=== PATIENT | female | born 1950 | race American Indian/Alaskan Native ===

== ENCOUNTER 2018-02-12 16:57 | Observation (INO) | payer BC, OTHER ==
[2018-02-12] MEDS ORDERED: Sodium Chloride 0.9% 2.5 ML Syringe FLUSH PRN (18:04)
[2018-02-12] MEDS ORDERED: Sodium Chloride 0.9% 10 ML Syringe FLUSH PRN (18:04)
--- NOTE | 2018-02-12 18:04 | EDM.PDOC ---
<VogtTalia - Last Filed: 02/12/18 19:52> ED HPI GENERAL MEDICAL PROBLEM - General Chief Complaint: General Stated Complaint: THYROID Time Seen by Provider: 02/12/18 17:57 - History of Present Illness INITIAL COMMENTS - FREE TEXT/NARRATIVE: This is Dr. Vogt dictating an addendum note as I assumed care of this case at 7 PM. I've reviewed the history and physical as above and M in agreement. The patient does state to nursing that she has had a weight loss over these last 6-7 days. Patient did have an ultrasound done of her soft tissue neck on January 23 which was read as a heterogeneous thyroid gland with goiter and no suspicious nodule or lymphadenopathy identified. A chest x-ray was performed on February 07 was restrained read as negative and the patient also had an MRI of the soft tissue neck with and without contrast performed on February 07 which revealed a small benign-appearing lymph node in the left lower neck within the area of concern but no other suspicious findings. Patient had mentioned these tests to the earlier provider and I shared the benign results with the patient. All the labs that were ordered prior to my arrival have been reviewed by me and the significant findings included TSH which is low at 0.22 and a BUN of 40 with a creatinine of 2.3. These lead to be consistent with the patient's dehydration but I have no comparison of labs to identify if the patient has a history of renal insufficiency. Potassium magnesium and phosphorus are all within normal limits. The patient currently in the ED says that she feels improved and does not have nausea and despite all of this has been able to tolerate fluids. I will give another liter of IV fluids. This case was discussed with the hospitalist Dr. Deshpande at 1950 p.m. and he agrees with observation admission for further hydration and medication management. He does not want any additional thyroid tests to be ordered from the ED and he will address that on the floor. The patient is agreeable with admission. Impression: Dehydration, profound diarrhea, excessive external thyroid medication use - Related Data Allergies Allergy/AdvReac Type Severity Reaction Status Date / Time brompheniramine Allergy Rash Verified 02/12/18 17:20 [From Dimetapp (brompheniramine-PPA)] meperidine [From Demerol] Allergy Hives Verified 02/12/18 17:20 Penicillins Allergy Cannot Verified 02/12/18 17:20 Remember phenylpropanolamine Allergy Rash Verified 02/12/18 17:20 [From Dimetapp (brompheniramine-PPA)] Sulfa (Sulfonamide Allergy Hives Verified 02/12/18 17:20 Antibiotics) Home Meds: Home Meds Hydrochlorothiazide 25 mg PO DAILY 02/12/18 [History] Levothyroxine 0.075 mg PO DAILY 02/12/18 [History] Levothyroxine Sodium [Levo-T] 0.05 mg PO DAILY 02/12/18 [History] Magnesium Oxide [Magnesium] 400 mg PO DAILY 02/12/18 [History] Nitroglycerin [Nitrostat] 0.4 mg SL ASDIRECTED PRN 02/12/18 [History] Ondansetron [Zofran ODT] 4 mg PO Q6H PRN 02/12/18 [History] Pantoprazole Sodium [Protonix] 40 mg PO DAILY 02/12/18 [History] Ramipril [Altace] 10 mg PO BID 02/12/18 [History] amLODIPine Besylate [Amlodipine Besylate] 5 mg PO BID 02/12/18 [History] atorvaSTATin [Lipitor] 40 mg PO DAILY 02/12/18 [History] metFORMIN [Glucophage XR] 1,000 mg PO BID 02/12/18 [History] ED ROS GENERAL - Review of Systems Review Of Systems: ROS reveals no pertinent complaints other than HPI. ED EXAM, GENERAL - Physical Exam Exam: See Below (see Dictation) Course - Vital Signs Last Recorded V/S: Last Vital Signs Temp 98 F 02/13/18 04:00 Pulse 65 02/13/18 04:00 Resp 16 02/13/18 04:00 BP 113/46 L 02/13/18 04:00 Pulse Ox 95 02/13/18 04:00 - Orders/Labs/Meds Orders: Active Orders 24 hr Category Date Time Status Sodium Chloride 0.9% [Saline Flush] Med 02/12/18 18:04 Active 10 ml FLUSH ASDIRECTED PRN Sodium Chloride 0.9% [Saline Flush] Med 02/12/18 18:04 Active 2.5 ml FLUSH ASDIRECTED PRN Saline Lock Insert [OM.PC] Stat Oth 02/12/18 18:04 Ordered Medication Orders Sodium Chloride (Normal Saline) 1,000 mls @ 150 mls/hr IV ASDIRECTED CHARLIE Last Admin: 02/13/18 05:04 Dose: 150 mls/hr Infusion: 02/13/18 05:02 Dose: 150 mls/hr Admin: 02/12/18 22:21 Dose: 150 mls/hr Insulin Aspart (Novolog) 0 unit SUBCUT TIDAC [facility]; Protocol Last Admin: 02/13/18 06:30 Dose: Not Given Ondansetron HCl (Zofran) 4 mg IVPUSH Q4H PRN PRN Reason: Nausea Promethazine HCl (Phenergan) 25 mg IM Q6H PRN PRN Reason: Nausea Sodium Chloride (Saline Flush) 10 ml FLUSH ASDIRECTED PRN PRN Reason: Keep Vein Open Last Admin: 02/12/18 20:35 Dose: 10 ml Sodium Chloride (Saline Flush) 2.5 ml FLUSH ASDIRECTED PRN PRN Reason: Keep Vein Open Last Admin: 02/12/18 20:35 Dose: 2.5 ml Labs: Laboratory Tests 02/12/18 02/12/18 Range/Units 18:14 18:14 WBC 8.22 (4.0-11.0) K/uL RBC 4.69 (4.30-5.90) M/uL Hgb 13.4 (12.0-16.0) g/dL Hct 40.4 (36.0-46.0) % MCV 86.1 (80.0-98.0) fL MCH 28.6 (27.0-32.0) pg MCHC 33.2 (31.0-37.0) g/dL RDW Std Deviation 42.7 (28.0-62.0) fl RDW Coeff of Mable 14 (11.0-15.0) % Plt Count 349 (150-400) K/uL MPV 10.30 (7.40-12.00) fL Neut % (Auto) 56.9 (48.0-80.0) % Lymph % (Auto) 31.9 (16.0-40.0) % [place] % (Auto) 9.7 (0.0-15.0) % Eos % (Auto) 1.3 (0.0-7.0) % Baso % (Auto) 0.2 (0.0-1.5) % Neut # (Auto) 4.7 (1.4-5.7) K/uL Lymph # (Auto) 2.6 H (0.6-2.4) K/uL [place] # (Auto) 0.8 (0.0-0.8) K/uL Eos # (Auto) 0.1 (0.0-0.7) K/uL Baso # (Auto) 0.0 (0.0-0.1) K/uL Nucleated RBC % 0.0 /100WBC Nucleated RBCs # 0 K/uL Sodium 136 (136-145) mmol/L Potassium 4.5 (3.5-5.1) mmol/L Chloride 102 (98-107) mmol/L Carbon Dioxide 20.7 L (21.0-32.0) mmol/L BUN 40 H (7.0-18.0) mg/dL Creatinine 2.3 H (0.6-1.0) mg/dL Est Cr Clr Drug Dosing 18.40 mL/min Estimated GFR (MDRD) 21.3 ml/min Glucose 107 H (74-106) mg/dL Calcium 9.2 (8.5-10.1) mg/dL Phosphorus 4.0 (2.6-4.7) mg/dL Magnesium 1.6 (1.5-2.0) mg/dL Total Bilirubin 0.7 (0.2-1.0) mg/dL AST 25 (15-37) IU/L ALT 38 (14-63) IU/L Alkaline Phosphatase 84 (46-116) U/L Total Protein 8.0 (6.4-8.2) g/dL Albumin 4.2 (3.4-5.0) g/dL Globulin 3.8 H (2.0-3.5) g/dL Albumin/Globulin Ratio 1.1 L (1.3-2.8) TSH 3rd Generation 0.22 L (0.36-3.74) uIU/mL Meds: Medications Generic Name Dose Route Start Last Admin Trade Name Freq PRN Reason Stop Dose Admin Sodium Chloride 1,000 mls @ 150 mls/hr 02/12/18 20:30 02/13/18 05:04 Normal Saline IV 150 mls/hr ASDIRECTED CHARLIE Administration Insulin Aspart 0 unit 02/13/18 07:30 02/13/18 06:30 Novolog SUBCUT Not Given TIDAC [facility] Protocol Ondansetron HCl 4 mg 02/12/18 20:58 Zofran IVPUSH Q4H PRN Nausea Promethazine HCl 25 mg 02/12/18 20:58 Phenergan IM Q6H PRN Nausea Sodium Chloride 10 ml 02/12/18 18:04 02/12/18 20:35 Saline Flush FLUSH 10 ml ASDIRECTED PRN Administration Keep Vein Open Sodium Chloride 2.5 ml 02/12/18 18:04 02/12/18 20:35 Saline Flush FLUSH 2.5 ml ASDIRECTED PRN Administration Keep Vein Open Discontinued Medications Generic Name Dose Route Start Last Admin Trade Name Freq PRN Reason Stop Dose Admin Lactated Ringer's 1,000 mls @ 999 mls/hr 02/12/18 18:40 02/12/18 19:02 Ringers, Lactated IV 02/12/18 19:40 999 mls/hr .BOLUS ONE Administration Sodium Chloride 1,000 mls @ 999 mls/hr 02/12/18 19:49 02/12/18 20:34 Normal Saline IV 02/12/18 20:49 999 mls/hr STAT ONE Administration Pantoprazole Sodium 40 mg 02/12/18 20:58 02/12/18 21:20 Protonix Iv IVPUSH 02/12/18 20:59 40 mg ONETIME ONE Administration Departure - Departure Time of Disposition: 19:53 Disposition: Refer to Observation Condition: Good Clinical Impression: Dehydration Diarrhea Qualifiers: Diarrhea type: unspecified type Qualified Code(s): R19.7 - Diarrhea, unspecified - Discharge Information - My Orders Last 24 Hours: My Active Orders 02/12/18 18:04 Sodium Chloride 0.9% [Saline Flush] 10 ml FLUSH ASDIRECTED PRN Sodium Chloride 0.9% [Saline Flush] 2.5 ml FLUSH ASDIRECTED PRN Saline Lock Insert [OM.PC] Stat - Assessment/Plan Last 24 Hours: My Active Orders 02/12/18 18:04 Sodium Chloride 0.9% [Saline Flush] 10 ml FLUSH ASDIRECTED PRN Sodium Chloride 0.9% [Saline Flush] 2.5 ml FLUSH ASDIRECTED PRN Saline Lock Insert [OM.PC] Stat <Rosalind Corona - Last Filed: 02/13/18 07:27> ED HPI GENERAL MEDICAL PROBLEM - General Source of Information: Reports: Patient History Limitations: Reports: No Limitations - History of Present Illness INITIAL COMMENTS - FREE TEXT/NARRATIVE: History of present illness: []Patient has a long history of thyroid disease and has been on Synthroid 0.050 mg a years until around January 17 when was increased to 0.075 mg daily. She has been having symptoms of nausea ,excessive tiredness, extreme thirst, dry mouth and is feeling generally ill. 4 days ago patient started having diarrhea and by the evening she had a fever. Patient took Tylenol and the fever has not returned since. She continues to have watery diarrhea approximately 6 episodes a day. Since the increase Synthroid and having a worsening symptoms hurt nurse practitioner told her to take her regular dose of 0.05 mg but on and Mondays to take increased dose of 0.75 mg. She is followed by nurse practitioner , Chloe Guerrero in [place] who referred her to yard labor supervisor in [facility], however her nurse practitioner is not in until Saturday so she is unsure when her appointment is scheduled. Patient had an MRI and an ultrasound of her thyroid in the past week that diagnosed a goiter. Review of systems: As per history of present illness and below otherwise all systems reviewed and negative. Past medical history: As per history of present illness and as reviewed below otherwise noncontributory. Surgical history: As per history of present illness and as reviewed below otherwise noncontributory. Social history: No reported history of drug or alcohol abuse. Family history: As per history of present illness and as reviewed below otherwise noncontributory. Physical exam: General: Well developed, well nourished in NAD HEENT: Atraumatic, normocephalic, pupils reactive, negative for conjunctival pallor or scleral icterus, mucous membranes moist, throat clear, neck supple, nontender, trachea midline. No stridor Lungs: Clear to auscultation, breath sounds equal bilaterally, chest nontender. Heart: S1S2, regular, negative for clicks, rubs, or JVD. Abdomen: Soft, nondistended, nontender. Negative for masses or hepatosplenomegaly. Negative for costovertebral tenderness. Pelvis: Stable nontender. Genitourinary: Deferred. Rectal: Deferred. Extremities: Atraumatic, negative for cords or calf pain. Neurovascular unremarkable. Neuro: Awake, alert, oriented. Cranial nerves II through XII unremarkable. Cerebellum unremarkable. Motor and sensory unremarkable throughout. Exam nonfocal. Diagnostics: []CBC chemistry and TSH ordered results pending. Therapeutics: []IV fluids Impression: []dehydration, Goiter, Plan: []Per Dr. Vogt Definitive disposition and diagnosis as appropriate pending reevaluation and review of above. Past Medical History Endocrine/Metabolic History: Reports: Diabetes, Type II, Hypothyroidism - Infectious Disease History Infectious Disease History: Reports: Chicken Pox, Measles - Past Surgical History Cardiovascular Surgical History: Reports: Coronary Artery Stent Other Cardiovascular Surgeries/Procedures: 1 stent Female Surgical History: Reports: Hysterectomy Social & Family History - Family History Family Medical History: Noncontributory - Tobacco Use Smoking Status *Q: Never Smoker - Caffeine Use Caffeine Use: Reports: None - Recreational Drug Use Recreational Drug Use: No ED ROS GENERAL - Review of Systems Review Of Systems: See Below (See history of present illness) ED EXAM, GENERAL - Physical Exam Exam: See Below (See history of present illness) Course - Orders/Labs/Meds Orders: Active Orders 24 hr Category Date Time Status Sodium Chloride 0.9% [Saline Flush] Med 02/12/18 18:04 Active 10 ml FLUSH ASDIRECTED PRN Sodium Chloride 0.9% [Saline Flush] Med 02/12/18 18:04 Active 2.5 ml FLUSH ASDIRECTED PRN Saline Lock Insert [OM.PC] Stat Oth 02/12/18 18:04 Ordered Medication Orders Sodium Chloride (Normal Saline) 1,000 mls @ 150 mls/hr IV ASDIRECTED [facility] Last Admin: 02/13/18 05:04 Dose: 150 mls/hr Infusion: 02/13/18 05:02 Dose: 150 mls/hr Admin: 02/12/18 22:21 Dose: 150 mls/hr Insulin Aspart (Novolog) 0 unit SUBCUT TIDAC [facility]; Protocol Last Admin: 02/13/18 06:30 Dose: Not Given Ondansetron HCl (Zofran) 4 mg IVPUSH Q4H PRN PRN Reason: Nausea Promethazine HCl (Phenergan) 25 mg IM Q6H PRN PRN Reason: Nausea Sodium Chloride (Saline Flush) 10 ml FLUSH ASDIRECTED PRN PRN Reason: Keep Vein Open Last Admin: 02/12/18 20:35 Dose: 10 ml Sodium Chloride (Saline Flush) 2.5 ml FLUSH ASDIRECTED PRN PRN Reason: Keep Vein Open Last Admin: 02/12/18 20:35 Dose: 2.5 ml Labs: Laboratory Tests 02/12/18 02/12/18 Range/Units 18:14 18:14 WBC 8.22 (4.0-11.0) K/uL RBC 4.69 (4.30-5.90) M/uL Hgb 13.4 (12.0-16.0) g/dL Hct 40.4 (36.0-46.0) % MCV 86.1 (80.0-98.0) fL MCH 28.6 (27.0-32.0) pg MCHC 33.2 (31.0-37.0) g/dL RDW Std Deviation 42.7 (28.0-62.0) fl RDW Coeff of Mable 14 (11.0-15.0) % Plt Count 349 (150-400) K/uL MPV 10.30 (7.40-12.00) fL Neut % (Auto) 56.9 (48.0-80.0) % Lymph % (Auto) 31.9 (16.0-40.0) % [place] % (Auto) 9.7 (0.0-15.0) % Eos % (Auto) 1.3 (0.0-7.0) % Baso % (Auto) 0.2 (0.0-1.5) % Neut # (Auto) 4.7 (1.4-5.7) K/uL Lymph # (Auto) 2.6 H (0.6-2.4) K/uL [place] # (Auto) 0.8 (0.0-0.8) K/uL Eos # (Auto) 0.1 (0.0-0.7) K/uL Baso # (Auto) 0.0 (0.0-0.1) K/uL Nucleated RBC % 0.0 /100WBC Nucleated RBCs # 0 K/uL Sodium 136 (136-145) mmol/L Potassium 4.5 (3.5-5.1) mmol/L Chloride 102 (98-107) mmol/L Carbon Dioxide 20.7 L (21.0-32.0) mmol/L BUN 40 H (7.0-18.0) mg/dL Creatinine 2.3 H (0.6-1.0) mg/dL Est Cr Clr Drug Dosing 18.40 mL/min Estimated GFR (MDRD) 21.3 ml/min Glucose 107 H (74-106) mg/dL Calcium 9.2 (8.5-10.1) mg/dL Phosphorus 4.0 (2.6-4.7) mg/dL Magnesium 1.6 (1.5-2.0) mg/dL Total Bilirubin 0.7 (0.2-1.0) mg/dL AST 25 (15-37) IU/L ALT 38 (14-63) IU/L Alkaline Phosphatase 84 (46-116) U/L Total Protein 8.0 (6.4-8.2) g/dL Albumin 4.2 (3.4-5.0) g/dL Globulin 3.8 H (2.0-3.5) g/dL Albumin/Globulin Ratio 1.1 L (1.3-2.8) TSH 3rd Generation 0.22 L (0.36-3.74) uIU/mL Meds: Medications Generic Name Dose Route Start Last Admin Trade Name Freq PRN Reason Stop Dose Admin Sodium Chloride 1,000 mls @ 150 mls/hr 02/12/18 20:30 02/13/18 05:04 Normal Saline IV 150 mls/hr ASDIRECTED CHARLIE Administration Insulin Aspart 0 unit 02/13/18 07:30 02/13/18 06:30 Novolog SUBCUT Not [facility] Protocol Ondansetron HCl 4 mg 02/12/18 20:58 Zofran IVPUSH Q4H PRN Nausea Promethazine HCl 25 mg 02/12/18 20:58 Phenergan IM Q6H PRN Nausea Sodium Chloride 10 ml 02/12/18 18:04 02/12/18 20:35 Saline Flush FLUSH 10 ml ASDIRECTED PRN Administration Keep Vein Open Sodium Chloride 2.5 ml 02/12/18 18:04 02/12/18 20:35 Saline Flush FLUSH 2.5 ml ASDIRECTED PRN Administration Keep Vein Open Discontinued Medications Generic Name Dose Route Start Last Admin Trade Name Freq PRN Reason Stop Dose Admin Lactated Ringer's 1,000 mls @ 999 mls/hr 02/12/18 18:40 02/12/18 19:02 Ringers, Lactated IV 02/12/18 19:40 999 mls/hr .BOLUS ONE Administration Sodium Chloride 1,000 mls @ 999 mls/hr 02/12/18 19:49 02/12/18 20:34 Normal Saline IV 02/12/18 20:49 999 mls/hr STAT ONE Administration Pantoprazole Sodium 40 mg 02/12/18 20:58 02/12/18 21:20 Protonix Iv IVPUSH 02/12/18 20:59 40 mg ONETIME ONE Administration - My Orders Last 24 Hours: My Active Orders 02/12/18 18:04 Sodium Chloride 0.9% [Saline Flush] 10 ml FLUSH ASDIRECTED PRN Sodium Chloride 0.9% [Saline Flush] 2.5 ml FLUSH ASDIRECTED PRN Saline Lock Insert [OM.PC] Stat - Assessment/Plan Last 24 Hours: My Active Orders 02/12/18 18:04 Sodium Chloride 0.9% [Saline Flush] 10 ml FLUSH ASDIRECTED PRN Sodium Chloride 0.9% [Saline Flush] 2.5 ml FLUSH ASDIRECTED PRN Saline Lock Insert [OM.PC] Stat
[2018-02-12] MEDS ORDERED: Lactated Ringers 1,000 ML IV ONE (18:40)
[2018-02-12] MEDS ORDERED: Sodium Chloride 0.9% 1,000 ML IV ONE (19:49)
[2018-02-12] MEDS ORDERED: Ondansetron 4 MG/2 ML SDV IVPUSH PRN (20:58)
[2018-02-12] MEDS ORDERED: Pantoprazole 40 MG Vial IVPUSH ONE (20:58)
[2018-02-12] MEDS ORDERED: Promethazine 25 MG/ML SDV IM PRN (20:58)
--- NOTE | 2018-02-12 21:04 | PCM.HP ---
H&P History of Present Illness - General Admit Problem/Dx: Admission Diagnosis/Problem Admission Diagnosis/Problem Dehydration - History of Present Illness Initial Comments - Free Text/Narative: 67 yo female with pmh of DM, CAD, and hypothyroidism. She presents with five day history of nausea and diarrhea. She reports feeling ill for about month. It started after her synthroid was increased fro 0.05 to 0.07mg. She was recently discovered to have a Goiter and was referred to endocrinology by her PCP. - Related Data Allergies/Adverse Reactions: Allergies Allergy/AdvReac Type Severity Reaction Status Date / Time brompheniramine Allergy Rash Verified 02/12/18 17:20 [From Dimetapp (brompheniramine-PPA)] meperidine [From Demerol] Allergy Hives Verified 02/12/18 17:20 Penicillins Allergy Cannot Verified 02/12/18 17:20 Remember phenylpropanolamine Allergy Rash Verified 02/12/18 17:20 [From Dimetapp (brompheniramine-PPA)] Sulfa (Sulfonamide Allergy Hives Verified 02/12/18 17:20 Antibiotics) Home Medications: Home Meds Hydrochlorothiazide 25 mg PO DAILY 02/12/18 [History] Levothyroxine 0.075 mg PO DAILY 02/12/18 [History] Levothyroxine Sodium [Levo-T] 0.05 mg PO DAILY 02/12/18 [History] Magnesium Oxide [Magnesium] 400 mg PO DAILY 02/12/18 [History] Nitroglycerin [Nitrostat] 0.4 mg SL ASDIRECTED PRN 02/12/18 [History] Ondansetron [Zofran ODT] 4 mg PO Q6H PRN 02/12/18 [History] Pantoprazole Sodium [Protonix] 40 mg PO DAILY 02/12/18 [History] Ramipril [Altace] 10 mg PO BID 02/12/18 [History] amLODIPine Besylate [Amlodipine Besylate] 5 mg PO BID 02/12/18 [History] atorvaSTATin [Lipitor] 40 mg PO DAILY 02/12/18 [History] metFORMIN [Glucophage XR] 1,000 mg PO BID 02/12/18 [History] Past Medical History Endocrine/Metabolic History: Reports: Diabetes, Type II, Hypothyroidism - Infectious Disease History Infectious Disease History: Reports: Chicken Pox, Measles - Past Surgical History Cardiovascular Surgical History: Reports: Coronary Artery Stent Other Cardiovascular Surgeries/Procedures: 1 stent Female Surgical History: Reports: Hysterectomy Social & Family History - Family History Family Medical History: Noncontributory - Tobacco Use Smoking Status *Q: Never Smoker - Caffeine Use Caffeine Use: Reports: None - Recreational Drug Use Recreational Drug Use: No H&P Review of Systems - Review of Systems: Review Of Systems: ROS reveals no pertinent complaints other than HPI. Exam - Exam Exam: See Below - Vital Signs Vital Signs: Last Vital Signs Temp 36.7 C 02/12/18 17:15 Pulse 70 02/12/18 20:35 Resp 12 02/12/18 20:35 BP 133/62 02/12/18 20:35 Pulse Ox 94 L 02/12/18 20:35 Weight: 71.1 kg - Exam General: Alert, Oriented Neck: Supple, Trachea Midline Lungs: Clear to Auscultation, Normal Respiratory Effort Cardiovascular: Regular Rate, Regular Rhythm GI/Abdominal Exam: Soft, Non-Tender Extremities: No Pedal Edema Skin: Warm, Dry, Intact Neurological: Cranial Nerves Intact, Strength Equal Bilateral, Normal Speech, Normal Tone. No: Focal Deficit - Patient Data Lab Results Last 24 hrs: Laboratory Results - last 24 hr 02/12/18 02/12/18 Range/Units 18:14 18:14 WBC 8.22 (4.0-11.0) K/uL RBC 4.69 (4.30-5.90) M/uL Hgb 13.4 (12.0-16.0) g/dL Hct 40.4 (36.0-46.0) % MCV 86.1 (80.0-98.0) fL MCH 28.6 (27.0-32.0) pg MCHC 33.2 (31.0-37.0) g/dL RDW Std Deviation 42.7 (28.0-62.0) fl RDW Coeff of Mable 14 (11.0-15.0) % Plt Count 349 (150-400) K/uL MPV 10.30 (7.40-12.00) fL Neut % (Auto) 56.9 (48.0-80.0) % Lymph % (Auto) 31.9 (16.0-40.0) % [place] % (Auto) 9.7 (0.0-15.0) % Eos % (Auto) 1.3 (0.0-7.0) % Baso % (Auto) 0.2 (0.0-1.5) % Neut # (Auto) 4.7 (1.4-5.7) K/uL Lymph # (Auto) 2.6 H (0.6-2.4) K/uL [place] # (Auto) 0.8 (0.0-0.8) K/uL Eos # (Auto) 0.1 (0.0-0.7) K/uL Baso # (Auto) 0.0 (0.0-0.1) K/uL Nucleated RBC % 0.0 /100WBC Nucleated RBCs # 0 K/uL Sodium 136 (136-145) mmol/L Potassium 4.5 (3.5-5.1) mmol/L Chloride 102 (98-107) mmol/L Carbon Dioxide 20.7 L (21.0-32.0) mmol/L BUN 40 H (7.0-18.0) mg/dL Creatinine 2.3 H (0.6-1.0) mg/dL Est Cr Clr Drug Dosing 18.40 mL/min Estimated GFR (MDRD) 21.3 ml/min Glucose 107 H (74-106) mg/dL Calcium 9.2 (8.5-10.1) mg/dL Phosphorus 4.0 (2.6-4.7) mg/dL Magnesium 1.6 (1.5-2.0) mg/dL Total Bilirubin 0.7 (0.2-1.0) mg/dL AST 25 (15-37) IU/L ALT 38 (14-63) IU/L Alkaline Phosphatase 84 (46-116) U/L Total Protein 8.0 (6.4-8.2) g/dL Albumin 4.2 (3.4-5.0) g/dL Globulin 3.8 H (2.0-3.5) g/dL Albumin/Globulin Ratio 1.1 L (1.3-2.8) TSH 3rd Generation 0.22 L (0.36-3.74) uIU/mL Result Diagrams: 02/13/18 05:15 02/13/18 05:15 Problem List Initiated/Reviewed/Updated: Yes Orders Last 24hrs: Active Orders 24 hr Category Date Time Status Patient Status [ADT] Stat ADT 02/12/18 19:49 Active Oxygen Therapy [RC] PRN Care 02/12/18 20:58 Ordered Up ad Heather [RC] ASDIRECTED Care 02/12/18 20:58 Ordered VTE/DVT Education [RC] PER UNIT ROUTINE Care 02/12/18 20:58 Ordered Vital Signs [RC] Q4H Care 02/12/18 20:58 Ordered [place] [employer] Diet [DIET] Diet 02/12/18 Breakfast Ordered CBC WITH AUTO DIFF [HEME] AM Lab 02/13/18 05:11 Ordered CDIFF TOX A+B [OP] Routine Lab 02/12/18 20:30 Ordered COMPREHENSIVE METABOLIC PN,CMP [CHEM] AM Lab 02/13/18 05:11 Ordered CULTURE STOOL + CAMPY+SHIGATOX [RM] Routine Lab 02/12/18 20:30 Ordered WBC, STOOL [OP] Routine Lab 02/12/18 20:30 Ordered Ondansetron [Zofran] Med 02/12/18 20:58 Ordered 4 mg IVPUSH Q4H PRN Pantoprazole [ProTONIX IV] Med 02/12/18 20:58 Once 40 mg IVPUSH ONETIME ONE Promethazine [Phenergan] Med 02/12/18 20:58 Ordered 25 mg IM Q6H PRN Sodium Chloride 0.9% [Normal Saline] 1,000 ml Med 02/12/18 20:30 Active IV ASDIRECTED Sodium Chloride 0.9% [Saline Flush] Med 02/12/18 18:04 Active 10 ml FLUSH ASDIRECTED PRN Sodium Chloride 0.9% [Saline Flush] Med 02/12/18 18:04 Active 2.5 ml FLUSH ASDIRECTED PRN Saline Lock Insert [OM.PC] Stat Oth 02/12/18 18:04 Ordered Sequential Compression Device [OM.PC] Per Unit Routine Oth 02/12/18 20:58 Ordered Resuscitation Status Routine Resus Stat 02/12/18 20:58 Ordered Medication Orders Sodium Chloride (Normal Saline) 1,000 mls @ 150 mls/hr IV ASDIRECTED CHARLIE Sodium Chloride (Saline Flush) 10 ml FLUSH ASDIRECTED PRN PRN Reason: Keep Vein Open Last Admin: 02/12/18 20:35 Dose: 10 ml Sodium Chloride (Saline Flush) 2.5 ml FLUSH ASDIRECTED PRN PRN Reason: Keep Vein Open Last Admin: 02/12/18 20:35 Dose: 2.5 ml Assessment/Plan Comment:: 67 yo female admitted with dehydration, diarrhea, and suspect acute kidney injury. Symptoms could be from increase in her thyroid replacement. We will send stool for studies. We will hold metformin and tano inhibitor. We will hydrate with IV fluids and monitor overnight.
[2018-02-12] MEDS: Sodium Chloride 0.9% 1,000 ML IV SCH (22:21)
[2018-02-13] MEDS: Sodium Chloride 0.9% 1,000 ML IV SCH (05:04)
[2018-02-13] MEDS: Insulin Aspart 100 Units/ML 3 ML Pen SUBCUT SCH ×2 (06:30→11:41)
--- NOTE | 2018-02-13 12:17 | PCM.DCSUM1 ---
<Best Beckford Z - Last Filed: 02/13/18 18:41> Discharge Summary - Hospital Course HPI Initial Comments: Discharge summary: Discharge diagnoses: #1. Dehydration secondary to nausea/vomiting/diarrhea now resolved, creatinine function returning back to baseline likely all secondary to acute gastritis enteritis. #2. Acute kidney injury secondary to dehydration, creatinine function now almost down to baseline #3.Significant past medical history of hypothyroidism, type 2 diabetes hospitalization course: Patient was admitted secondary to nausea/vomiting/ dehydration with acute kidney injury likely secondary to viral gastroenteritis. Patient was given IV fluids, her metformin was held, patient was given Zofran for control of her nausea/vomiting, Imodium for her diarrheal episodes, a stool culture was ordered however patient did not have any further bowel movements once she was admitted. Patient did very well overnight, in the morning she was not having any further nausea vomiting diarrhea episodes. Patient's creatinine function and come back down to 1.3 from greater than 2, she appeared to be well hydrated comfortable and stated that she was ready to go home and follow-up with her PCP. - Discharge Data Discharge Date: 02/13/18 Discharge Disposition: Home, Self-Care 01 Condition: Stable - Patient Instructions Diet: Usual Diet as Tolerated Activity: As Tolerated Driving: May Drive Today Showering/Bathing: May Shower Notify Provider of: Fever, Increased Pain, Swelling and Redness, Nausea and/or Vomiting - Discharge Plan Home Medications: Home Meds Hydrochlorothiazide 25 mg PO DAILY 02/12/18 [History] Levothyroxine 0.075 mg PO DAILY 02/12/18 [History] Levothyroxine Sodium [Levo-T] 0.05 mg PO DAILY 02/12/18 [History] Magnesium Oxide [Magnesium] 400 mg PO DAILY 02/12/18 [History] Nitroglycerin [Nitrostat] 0.4 mg SL ASDIRECTED PRN 02/12/18 [History] Ondansetron [Zofran ODT] 4 mg PO Q6H PRN 02/12/18 [History] Pantoprazole Sodium [Protonix] 40 mg PO DAILY 02/12/18 [History] Ramipril [Altace] 10 mg PO BID 02/12/18 [History] amLODIPine Besylate [Amlodipine Besylate] 5 mg PO BID 02/12/18 [History] atorvaSTATin [Lipitor] 40 mg PO DAILY 02/12/18 [History] metFORMIN [Glucophage XR] 1,000 mg PO BID 02/12/18 [History] Patient Handouts: Dehydration, Adult, [id number] Referrals: Chloe Guerrero PA-C [Ordering Only Provider] - 02/21/18 11:00 am - Discharge Summary/Plan Comment DC Time >30 min.: No - Patient Data Vitals - Most Recent: Last Vital Signs Temp 36.9 C 02/13/18 11:44 Pulse 67 02/13/18 11:44 Resp 18 02/13/18 11:44 BP 108/55 L 02/13/18 11:44 Pulse Ox 97 02/13/18 11:44 Weight - Most Recent: 71.1 kg I&O - Last 24 hours: Intake & Output 02/12/18 02/13/18 02/13/18 22:59 06:59 14:59 Intake Total 999 1299 Output Total 1300 Balance 999 -1 Lab Results - Last 24 hrs: Laboratory Results - last 24 hr 02/12/18 02/12/18 02/13/18 Range/Units 18:14 18:14 05:15 WBC 8.22 6.01 (4.0-11.0) K/uL RBC 4.69 4.04 L (4.30-5.90) M/uL Hgb 13.4 11.5 L (12.0-16.0) g/dL Hct 40.4 34.9 L (36.0-46.0) % MCV 86.1 86.4 (80.0-98.0) fL MCH 28.6 28.5 (27.0-32.0) pg MCHC 33.2 33.0 (31.0-37.0) g/dL RDW Std Deviation 42.7 42.9 (28.0-62.0) fl RDW Coeff of Mable 14 14 (11.0-15.0) % Plt Count 349 287 (150-400) K/uL MPV 10.30 10.30 (7.40-12.00) fL Neut % (Auto) 56.9 47.9 L (48.0-80.0) % Lymph % (Auto) 31.9 37.8 (16.0-40.0) % Redwood % (Auto) 9.7 11.3 (0.0-15.0) % Eos % (Auto) 1.3 2.7 (0.0-7.0) % Baso % (Auto) 0.2 0.3 (0.0-1.5) % Neut # (Auto) 4.7 2.9 (1.4-5.7) K/uL Lymph # (Auto) 2.6 H 2.3 (0.6-2.4) K/uL Redwood # (Auto) 0.8 0.7 (0.0-0.8) K/uL Eos # (Auto) 0.1 0.2 (0.0-0.7) K/uL Baso # (Auto) 0.0 0.0 (0.0-0.1) K/uL Nucleated RBC % 0.0 0.0 /100WBC Nucleated RBCs # 0 0 K/uL Sodium 136 (136-145) mmol/L Potassium 4.5 (3.5-5.1) mmol/L Chloride 102 (98-107) mmol/L Carbon Dioxide 20.7 L (21.0-32.0) mmol/L BUN 40 H (7.0-18.0) mg/dL Creatinine 2.3 H (0.6-1.0) mg/dL Est Cr Clr Drug Dosing 18.40 mL/min Estimated GFR (MDRD) 21.3 ml/min Glucose 107 H (74-106) mg/dL POC Glucose (60-110) mg/dL Calcium 9.2 (8.5-10.1) mg/dL Phosphorus 4.0 (2.6-4.7) mg/dL Magnesium 1.6 (1.5-2.0) mg/dL Total Bilirubin 0.7 (0.2-1.0) mg/dL AST 25 (15-37) IU/L ALT 38 (14-63) IU/L Alkaline Phosphatase 84 (46-116) U/L Total Protein 8.0 (6.4-8.2) g/dL Albumin 4.2 (3.4-5.0) g/dL Globulin 3.8 H (2.0-3.5) g/dL Albumin/Globulin Ratio 1.1 L (1.3-2.8) Free T4 (0.76-1.46) ng/dL TSH 3rd Generation 0.22 L (0.36-3.74) uIU/mL 02/13/18 02/13/18 02/13/18 Range/Units 05:15 05:15 06:20 WBC (4.0-11.0) K/uL RBC (4.30-5.90) M/uL Hgb (12.0-16.0) g/dL Hct (36.0-46.0) % MCV (80.0-98.0) fL MCH (27.0-32.0) pg MCHC (31.0-37.0) g/dL RDW Std Deviation (28.0-62.0) fl RDW Coeff of Mable (11.0-15.0) % Plt Count (150-400) K/uL MPV (7.40-12.00) fL Neut % (Auto) (48.0-80.0) % Lymph % (Auto) (16.0-40.0) % Redwood % (Auto) (0.0-15.0) % Eos % (Auto) (0.0-7.0) % Baso % (Auto) (0.0-1.5) % Neut # (Auto) (1.4-5.7) K/uL Lymph # (Auto) (0.6-2.4) K/uL Redwood # (Auto) (0.0-0.8) K/uL Eos # (Auto) (0.0-0.7) K/uL Baso # (Auto) (0.0-0.1) K/uL Nucleated RBC % /100WBC Nucleated RBCs # K/uL Sodium 139 (136-145) mmol/L Potassium 4.4 (3.5-5.1) mmol/L Chloride 108 H (98-107) mmol/L Carbon Dioxide 21.3 (21.0-32.0) mmol/L BUN 29 H (7.0-18.0) mg/dL Creatinine 1.2 H (0.6-1.0) mg/dL Est Cr Clr Drug Dosing 35.31 mL/min Estimated GFR (MDRD) 45.1 ml/min Glucose 110 H (74-106) mg/dL POC Glucose 138 H (60-110) mg/dL Calcium 8.3 L (8.5-10.1) mg/dL Phosphorus (2.6-4.7) mg/dL Magnesium (1.5-2.0) mg/dL Total Bilirubin 0.5 (0.2-1.0) mg/dL AST 21 (15-37) IU/L ALT 30 (14-63) IU/L Alkaline Phosphatase 66 (46-116) U/L Total Protein 6.2 L (6.4-8.2) g/dL Albumin 3.1 L (3.4-5.0) g/dL Globulin 3.1 (2.0-3.5) g/dL Albumin/Globulin Ratio 1.0 L (1.3-2.8) Free T4 1.18 (0.76-1.46) ng/dL TSH 3rd Generation (0.36-3.74) uIU/mL 02/13/18 Range/Units 11:25 WBC (4.0-11.0) K/uL RBC (4.30-5.90) M/uL Hgb (12.0-16.0) g/dL Hct (36.0-46.0) % MCV (80.0-98.0) fL MCH (27.0-32.0) pg MCHC (31.0-37.0) g/dL RDW Std Deviation (28.0-62.0) fl RDW Coeff of Mable (11.0-15.0) % Plt Count (150-400) K/uL MPV (7.40-12.00) fL Neut % (Auto) (48.0-80.0) % Lymph % (Auto) (16.0-40.0) % Redwood % (Auto) (0.0-15.0) % Eos % (Auto) (0.0-7.0) % Baso % (Auto) (0.0-1.5) % Neut # (Auto) (1.4-5.7) K/uL Lymph # (Auto) (0.6-2.4) K/uL Redwood # (Auto) (0.0-0.8) K/uL Eos # (Auto) (0.0-0.7) K/uL Baso # (Auto) (0.0-0.1) K/uL Nucleated RBC % /100WBC Nucleated RBCs # K/uL Sodium (136-145) mmol/L Potassium (3.5-5.1) mmol/L Chloride (98-107) mmol/L Carbon Dioxide (21.0-32.0) mmol/L BUN (7.0-18.0) mg/dL Creatinine (0.6-1.0) mg/dL Est Cr Clr Drug Dosing mL/min Estimated GFR (MDRD) ml/min Glucose (74-106) mg/dL POC Glucose 108 (60-110) mg/dL Calcium (8.5-10.1) mg/dL Phosphorus (2.6-4.7) mg/dL Magnesium (1.5-2.0) mg/dL Total Bilirubin (0.2-1.0) mg/dL AST (15-37) IU/L ALT (14-63) IU/L Alkaline Phosphatase (46-116) U/L Total Protein (6.4-8.2) g/dL Albumin (3.4-5.0) g/dL Globulin (2.0-3.5) g/dL Albumin/Globulin Ratio (1.3-2.8) Free T4 (0.76-1.46) ng/dL TSH 3rd Generation (0.36-3.74) uIU/mL Med Orders - Current: Current Medications Sodium Chloride (Normal Saline) 1,000 mls @ 150 mls/hr IV ASDIRECTED [facility] Last Admin: 02/13/18 05:04 Dose: 150 mls/hr Insulin Aspart (Novolog) 0 unit SUBCUT TIDAC [facility]; Protocol Last Admin: 02/13/18 11:41 Dose: Not Given Ondansetron HCl (Zofran) 4 mg IVPUSH Q4H PRN PRN Reason: Nausea Promethazine HCl (Phenergan) 25 mg IM Q6H PRN PRN Reason: Nausea Sodium Chloride (Saline Flush) 10 ml FLUSH ASDIRECTED PRN PRN Reason: Keep Vein Open Last Admin: 02/12/18 20:35 Dose: 10 ml Sodium Chloride (Saline Flush) 2.5 ml FLUSH ASDIRECTED PRN PRN Reason: Keep Vein Open Last Admin: 02/12/18 20:35 Dose: 2.5 ml Discontinued Medications Lactated Ringer's (Ringers, Lactated) 1,000 mls @ 999 mls/hr IV .BOLUS ONE Stop: 02/12/18 19:40 Last Admin: 02/12/18 19:02 Dose: 999 mls/hr Sodium Chloride (Normal Saline) 1,000 mls @ 999 mls/hr IV STAT ONE Stop: 02/12/18 20:49 Last Admin: 02/12/18 20:34 Dose: 999 mls/hr Pantoprazole Sodium (Protonix Iv) 40 mg IVPUSH ONETIME ONE Stop: 02/12/18 20:59 Last Admin: 02/12/18 21:20 Dose: 40 mg <Lit Deshpande - Last Filed: 02/21/18 19:51> - Patient Data Vitals - Most Recent: Last Vital Signs Temp 36.9 C 02/13/18 11:44 Pulse 67 02/13/18 11:44 Resp 18 02/13/18 11:44 BP 108/55 L 02/13/18 11:44 Pulse Ox 97 02/13/18 11:44 Med Orders - Current: Current Medications Discontinued Medications Lactated Ringer's (Ringers, Lactated) 1,000 mls @ 999 mls/hr IV .BOLUS ONE Stop: 02/12/18 19:40 Last Admin: 02/12/18 19:02 Dose: 999 mls/hr Sodium Chloride (Normal Saline) 1,000 mls @ 999 mls/hr IV STAT ONE Stop: 02/12/18 20:49 Last Admin: 02/12/18 20:34 Dose: 999 mls/hr Sodium Chloride (Normal Saline) 1,000 mls @ 150 mls/hr IV ASDIRECTED [facility] Last Admin: 02/13/18 05:04 Dose: 150 mls/hr Insulin Aspart (Novolog) 0 unit SUBCUT TIDAC [facility]; Protocol Last Admin: 02/13/18 11:41 Dose: Not Given Ondansetron HCl (Zofran) 4 mg IVPUSH Q4H PRN PRN Reason: Nausea Pantoprazole Sodium (Protonix Iv) 40 mg IVPUSH ONETIME ONE Stop: 02/12/18 20:59 Last Admin: 02/12/18 21:20 Dose: 40 mg Promethazine HCl (Phenergan) 25 mg IM Q6H PRN PRN Reason: Nausea Sodium Chloride (Saline Flush) 10 ml FLUSH ASDIRECTED PRN PRN Reason: Keep Vein Open Last Admin: 02/12/18 20:35 Dose: 10 ml Sodium Chloride (Saline Flush) 2.5 ml FLUSH ASDIRECTED PRN PRN Reason: Keep Vein Open Last Admin: 02/12/18 20:35 Dose: 2.5 ml - Free Text/Narrative Note: I have examined the patient. I have discussed findings and treatment plan with the resident. I agree with the assessment and plan outlined in the following resident's note.
== END 2018-02-13 13:15 | disposition home or self-care (01) ==
LOC: MW.ED 16:57 → MW.MS 19:49
PROVIDERS: ADMIT Internal Medicine; ATTEND Internal Medicine
DX: E86.0 Dehydration (principal); N17.9 Acute kidney failure, unspecified; E03.9 Hypothyroidism, unspecified; E11.9 Type 2 diabetes mellitus without complications; R11.2 Nausea with vomiting, unspecified; R19.7 Diarrhea, unspecified; Z79.84 Long term (current) use of oral hypoglycemic drugs; Z79.899 Other long term (current) drug therapy; Z88.0 Allergy status to penicillin; Z88.2 Allergy status to sulfonamides; Z88.8 Allergy status to other drugs, medicaments and biological substances
CPT/HCPCS: 36415; 80053; 82962; 83735; 84100; 84439; 84443; 85025; 96360; 96361; 99284; C9113; J7040; J7120; 96374; 99283; G0378

== ENCOUNTER 2023-03-08 14:00 | Emergency (ER) | payer MEDICARE, BC, OTHER ==
[2023-03-08] MEDS ORDERED: Sodium Chloride 0.9% 10 ML Syringe FLUSH PRN (14:11)
[2023-03-08] MEDS: Sodium Chloride 0.9% 2.5 ML Syringe FLUSH PRN ×2 (14:14→14:36)
[2023-03-08] MEDS ORDERED: Ketorolac 30 MG/ML SDV IVPUSH ONE (14:27)
[2023-03-08 15:13] LABS: BLOOD UREA NITROGEN,BUN 21 mg/dL (7.0-18.0); CARBON DIOXIDE,CO2 26.9 mmol/L (21.0-32.0); CHLORIDE,CL 99 mmol/L (98-107); ESTIMATED GFR 69 mL/min (>60); GLUCOSE RANDOM 150 mg/dL (74-106); POTASSIUM,K 3.9 mmol/L (3.5-5.1); SODIUM,NA 136 mmol/L (136-145)
== END 2023-03-08 16:41 | disposition home or self-care (01) ==
LOC: MW.ED 14:00
DX: S20.219A Contusion of unspecified front wall of thorax, initial encounter (principal); E11.9 Type 2 diabetes mellitus without complications; E03.9 Hypothyroidism, unspecified; Z88.0 Allergy status to penicillin; Z88.2 Allergy status to sulfonamides; Z88.5 Allergy status to narcotic agent; Z79.899 Other long term (current) drug therapy; Z79.84 Long term (current) use of oral hypoglycemic drugs; Z95.5 Presence of coronary angioplasty implant and graft; W00.0XXA Fall on same level due to ice and snow, initial encounter
CPT/HCPCS: 36415; 71250; 80053; 84484; 85025; 93005; 99284; J1885; J3490; 93010